=== PATIENT | male | born 1985 | race Caucasian/White ===

== ENCOUNTER 2016-11-21 07:37 | Emergency (ER) | payer BC, OTHER ==
--- NOTE | 2016-11-21 08:07 | Emergency Department Record ---
History of Present Illness - General Chief complaint: Flank Pain Stated complaint: LEFT FLANK PAIN Time Seen by Provider: 11/21/16 07:53 Source: Patient Mode of Arrival: Ambulatory Limitations: No limitations - History of Present Illness Initial comments: The patient is here due to the acute onset of L flank pain for the last 4 hours. The onset was sudden and the pain does radiate to the L testicle. He has had nausea and vomiting and feels that he cannot get comfortable due to the pain. The patient has had kidney stones in the past and this feels just like ones in the past. He denies any other issues. MD Complaint: Other Onset/Timin -: Hour(s) Location: Left flank Radiation: Other Severity: Severe Severity scale (1-10): 9 Consistency: Constant Reports: Nausea/vomiting - Related Data Previous Rx's Medication Instructions Recorded Hydrocodone/Acetaminophen [[place] 1 each PO Q6HR #14 tablet 01/19/14 5-325 Tablet] Ciprofloxacin HCl [Cipro] 500 mg PO Q12HR #13 tablet 11/21/16 Allergies Allergy/AdvReac Type Severity Reaction Status Date / Time amoxicillin [Amoxicillin] Allergy RASH Verified 01/19/14 01:52 Travel Screening - Travel/Exposure Within Last 30 Days Have you traveled within the last 30 days?: No Review of Systems Constitutional: Denies: Chills, Fever Eyes: Denies: Eye discharge ENT: Denies: Congestion Respiratory: Denies: Cough, Dyspnea Past Medical History - SOCIAL HISTORY Smoking Status: Never smoker Alcohol Use: Occasional Drug Use: None - RESPIRATORY Hx Respiratory Disorders: Yes Hx Asthma: Yes - CARDIOVASCULAR Hx Cardio Disorders: No - NEURO Hx Neuro Disorders: Yes Hx Seizures: Yes - GI Hx GI Disorders: No - Hx Genitourinary Disorders: Yes Hx Kidney Stones: Yes (hx) - ENDOCRINE Hx Endocrine Disorders: No - MUSCULOSKELETAL Hx Musculoskeletal Disorders: No - PSYCH Hx Psych Problems: No - HEMATOLOGY/ONCOLOGY Hx Hematology/Oncology Disorders: No Family Medical History Any Significant Family History?: Yes Hx Heart Disease: Father Hx Kidney Disease: Mother Physical Exam - General General Appearance: Alert, Cooperative, Mild distress - Head Head exam: Atraumatic, Normocephalic - Eye Eye exam: Normal appearance, PERRL - Neck Neck exam: Normal inspection, Full ROM. negative: Tenderness - Respiratory Respiratory exam: Normal lung sounds bilaterally. negative: Respiratory distress - Cardiovascular Cardiovascular Exam: Regular rate, Normal rhythm, Normal heart sounds - GI/Abdominal GI/Abdominal exam: Soft, Normal bowel sounds. negative: Tenderness - Extremities Extremities exam: Normal inspection, Full ROM, Normal capillary refill. negative: Tenderness - Back Back exam: Reports: CVA tenderness (L) - Neurological Neurological exam: Alert. negative: Motor sensory deficit Course Vital Signs 11/21/16 07:43 Temperature 97.4 F L Pulse Rate 84 Respiratory 20 Rate Blood Pressure 168/108 Pulse Ox 96 - Reevaluation(s) Reevaluation #1: The patient is doing better at this time. His pain is improved. 11/21/16 08:38 Reevaluation #2: The patient is doing much better at this time. His pain has mainly resolved and he is resting comfortably. 11/21/16 08:58 Reevaluation #3: The patient is doing better at this time. His pain has resolved. I did explain to him that it appears he has passed his ureter stone. He feels ready for home. 11/21/16 09:23 Medical Decision Making - Data Complexity MDM Data: Labs Ordered and/or Reviewed, X-Ray Ordered and/or Reviewed - Lab Data Result diagrams: 11/21/16 08:10 11/21/16 08:10 - Radiology Data Radiology results: Report reviewed (Abd/pelvis CT: 2 mm stone in the dependent portion of the bladder. O/W neg.) Disposition Disposition: Discharge Clinical Impression: Ureteral calculi Disposition: Home, Self-Care Condition: (1) Good Instructions: Flank Pain (ED) Additional Instructions: Please drink plenty of fluids. Use Tylenol or Motrin for pain and continue the Cipro. Please return to the ER for any increased pain, fever, or vomiting. Prescriptions: Ciprofloxacin HCl [Cipro] 500 mg PO Q12HR #13 tablet Forms: Patient Portal Access Time of Disposition: 09:25 Quality - Quality Measures Quality Measures: N/A - Blood Pressure Screening View Details: Yes Does Patient Have Any of the Following: No Blood Pressure Classification: Pre-Hypertensive BP Reading Systolic Measurement: 140 Diastolic Measurement: 84 Screening for High Blood Pressure: < Pre-Hypertensive BP, F/U Documented > [ G8950] Pre-Hypertensive Follow-up Interventions: Referral to alternative/primary care provider.
[2016-11-21] MEDS: SODIUM CHLORIDE 0.9% 500 ML IV ONE (08:14)
[2016-11-21] MEDS: ONDANSETRON HCL IV 4 MG/2 ML VIAL IV ONE (08:16)
[2016-11-21 08:17] LABS: BASO % 0.3 % (0-6); EOS % 0.8 % (0-6); GRAN % 76.6 % (47-80); HEMATOCRIT 43.1 % (42.0-52.0); HEMOGLOBIN 15.3 gm/dl (14.0-18.0); LYMPH % 17.6 % (16-45); MEAN CELL VOLUME 80.4 fl (81-97); MEAN CORPUSCULAR HEMOGLOBIN 28.5 pg (27-33); MEAN CORPUSCULAR HGB CONC 35.5 g/dl (32-36); MEAN PLATELET VOLUME 9.8 fl (7.4-10.4); MONO % 4.7 % (0-9); PLATELET COUNT 276 K/uL (130-400); RED BLOOD COUNT 5.36 M/uL (4.40-5.70); WHITE BLOOD COUNT W/O DIFF 9.7 K/uL (4.2-12.2)
[2016-11-21] MEDS: HYDROMORPHONE HCL 1MG/ML **SYRINGE IVP ONE (08:19)
[2016-11-21 08:23] LABS: URINE APPEARANCE CLEAR; URINE BILIRUBIN SMALL (NEGATIVE); URINE BLOOD LARGE (NEGATIVE); URINE COLOR YELLOW; URINE GLUCOSE (UA) NEGATIVE (NEGATIVE); URINE KETONE NEGATIVE (NEGATIVE); URINE LEUKOCYTE ESTERASE SMALL (NEGATIVE); URINE NITRITE NEGATIVE (NEGATIVE); URINE UROBILINOGEN 0.2 E.U./dL (0.20 - 1.00)
[2016-11-21 08:32] LABS: CREATININE 0.9 mg/dL (0.7-1.2); EST GLOMERULAR FILTRATION RATE > 60 mL/min; GLUCOSE,RANDOM 139 mg/dL (74-109)
[2016-11-21 08:36] LABS: URINE BACTERIA FEW; URINE EPITHELIAL CELLS 0 - 2 (FEW); URINE RBC 21 - 35 (NONE SEEN)
[2016-11-21 08:37] LABS: URINE MUCUS MODERATE
[2016-11-21] MEDS: CIPROFLOXACIN HCL 500 MG TABLET PO ONE (09:28)
--- NOTE | 2016-11-21 10:00 | CT SCAN REPORT ---
DATE: 11/21/2016. EXAM: CT SCAN OF THE ABDOMEN AND PELVIS. HISTORY: The patient has left flank pain that radiates down into the testes. TECHNIQUE: Serial axial CT scan of the abdomen and pelvis was performed at 2.5 mm intervals from the dome of the diaphragm down to the pubic symphysis without the use of intravenous contrast. Sagittal and coronal reconstructions are provided. COMPARISON: No comparison CT is available. FINDINGS: The lung windows and lung bases demonstrate mild interstitial prominence within the right lateral lower lobe. These findings may represent mild subsegmental atelectasis and/or infiltrate. Followup PA and lateral views of the chest can be obtained until resolution of findings. The visualized heart size and contour is within normal limits. The liver demonstrates diffuse fatty infiltration. Size and contour of the liver is within normal limits. No focal hepatic lesions are identified. The spleen measures 15 cm in AP dimension. This is considered mildly enlarged. The pancreas, bilateral adrenal glands, and gallbladder are unremarkable. There is currently no CT evidence of hydronephrosis or hydroureter. There is subtle perinephric fat stranding identified of the left renal hilum. Subtle left periureteral fat stranding is also identified. No obstructive left renal calculi are noted. There is a nonobstructive 2.0 mm calculus within the mid pole of the right kidney. The contour and caliber of the abdominal aorta is within normal limits. There is no CT evidence of retroperitoneal, pelvic, or adrenal lymphadenopathy. The bowel gas pattern is nonspecific and nonobstructive. There is no CT evidence of free intraperitoneal fluid or free intraperitoneal air. Within the dependent portion of the urinary bladder, there is a punctate 2.0 mm calculus. This finding may have been the obstructing lesion within the left renal collecting system which has now passed into the bladder. Bone windows demonstrate no CT evidence of a fracture or dislocation of the osseus structures of the abdomen and pelvis. IMPRESSION: 1. A 2.0 MM CALCULUS IS NOTED WITHIN THE DEPENDENT PORTION OF THE URINARY BLADDER WHICH WAS LIKELY THE OBSTRUCTING CALCULUS IN THE LEFT URETER AND RENAL COLLECTING SYSTEM. 2. NO OTHER ACUTE INTRA-ABDOMINAL PATHOLOGY IS NOTED. 3. MILD SUBSEGMENTAL ATELECTASIS AND/OR INFILTRATE IS POSSIBLE WITHIN THE RIGHT POSTERIOR LOWER LOBE. FOLLOWUP PA AND LATERAL OF THE CHEST CAN BE OBTAINED UNTIL RESOLUTION OF FINDINGS. JOB NUMBER: [id number] [facility]
== END 2016-11-21 09:46 | disposition home or self-care (01) ==
LOC: ER 07:37
DX: N20.1 Calculus of ureter (principal); R11.2 Nausea with vomiting, unspecified; Z87.442 Personal history of urinary calculi
CPT/HCPCS: 99284 ×2; 96374; 96375; 96361; 85025; 80048; 81001; 74176; J2405; J1170

== ENCOUNTER 2017-10-26 22:45 | Emergency (ER) | payer OTHER ==
[2017-10-26] MEDS ORDERED: THROMBIN/GELATIN FOAM HEMOSTAT (THROMBI-GEL) TP ONE (22:59)
[2017-10-26] MEDS ORDERED: Diph,Pert(Acell),Tet Vac 0.5 ML SYR IM ONE (22:59)
[2017-10-26] MEDS ORDERED: TOPICAL LIDOCAINE W/ EPI 5 ML TOP ONE (22:59)
--- NOTE | 2017-10-26 23:05 | Emergency Department Record ---
History of Present Illness - General Chief Complaint: Laceration(s) Stated Complaint: LAC RT THUMB Time Seen by Provider: 10/26/17 22:47 Source: Patient Mode of Arrival: Ambulatory Limitations: No limitations - History of Present Illness Initial Commments: 31 yo male presents to ED for evaluation of a laceration to the right thumb that occurred approximately 2 hours ago. Patient reports that he was using a slicing machine resulting in tissue loss to the thumb and bleeding. Patient reports pain and bleeding through previously applied dressing, denies use of anticoagulation medications. Patient reports that his last tetanus > 5 years ago. Onset/Timin -: Hour(s) Extremity Location: Right: Hand Place: Home Context: Accidental Associated Symptoms: Pain Treatments Prior to Arrival: Bandage - [place] Coma Scale Eye Response: (4) Open spontaneously Motor Response: (6) Obeys commands Verbal Response: (5) Oriented [place] Total: 15 - Related Data Hx Tetanus Toxoid Vaccination: Yes Patient Tetanus UTD (within 5 yrs): No Previous Rx's Medication Instructions Recorded Cephalexin [Keflex] 500 mg PO QID #39 cap 10/26/17 Allergies Allergy/AdvReac Type Severity Reaction Status Date / Time amoxicillin [Amoxicillin] Allergy RASH Verified 01/19/14 01:52 Review of Systems Constitutional: Denies: Chills, Fever, Malaise, Night sweats Eyes: Denies: Eye discharge, Eye pain ENT: Denies: Congestion, Ear pain, Epistaxis Respiratory: Denies: Cough, Dyspnea Cardiovascular: Denies: Chest pain, Dyspnea on exertion Endocrine: Denies: Fatigue, Heat or cold intolerance Gastrointestinal: Denies: Abdominal pain, Nausea, Vomiting Genitourinary: Denies: Incontinence, Retention Musculoskeletal: Denies: Arthralgia, Back pain, Gout, Joint swelling Skin: Reports: Other (thumb laceration/bleeding). Denies: Bruising, Change in color, Change in hair/nails Neurological: Denies: Abnormal gait, Confusion, Seizure Psychiatric: Denies: Anxiety Hematological/Lymphatic: Denies: Anemia, Blood Clots Past Medical History - SOCIAL HISTORY Smoking Status: Never smoker Drug Use: None - RESPIRATORY Hx Respiratory Disorders: Yes Hx Asthma: Yes - CARDIOVASCULAR Hx Cardio Disorders: No - NEURO Hx Neuro Disorders: Yes Hx Seizures: Yes - GI Hx GI Disorders: No - Hx Genitourinary Disorders: Yes Hx Kidney Stones: Yes (hx) - ENDOCRINE Hx Endocrine Disorders: No - MUSCULOSKELETAL Hx Musculoskeletal Disorders: No - PSYCH Hx Psych Problems: No - HEMATOLOGY/ONCOLOGY Hx Hematology/Oncology Disorders: No Family Medical History Hx Heart Disease: Father Hx Kidney Disease: Mother Physical Exam - General General Appearance: Alert, Oriented x3, Cooperative, Moderate distress Limitations: No limitations - Head Head exam: Atraumatic, Normocephalic, Normal inspection Head exam detail: negative: Abrasion, Contusion, Singh's sign, General tenderness, Hematoma, Laceration - Eye Eye exam: Normal appearance. negative: Conjunctival injection, Periorbital swelling, Periorbital tenderness, Scleral icterus - ENT Ear exam: negative: Auricular hematoma, Auricular trauma Nasal Exam: negative: Active bleeding, Discharge, Dried blood, Foreign body Mouth exam: negative: Drooling, Laceration, Muffled voice, Tongue elevation - Neck Neck exam: Normal inspection. negative: Meningismus, Tenderness - Respiratory Respiratory exam: Normal lung sounds bilaterally. negative: Rales, Respiratory distress, Rhonchi, Stridor - Cardiovascular Cardiovascular Exam: Regular rate, Normal rhythm, Normal heart sounds - GI/Abdominal GI/Abdominal exam: Soft. negative: Rebound, Rigid, Tenderness - Rectal Rectal exam: Deferred - exam: Deferred - Extremities Extremities exam: Tenderness, Other (1.0 x 2.0 cm laceration resulting from tissue loss of the palmar aspect of the right thumb, no tendon visualized, FROM with extension/flexion is present.). negative: Calf tenderness, Pedal edema - Back Back exam: Denies: CVA tenderness (R), CVA tenderness (L) - Neurological Neurological exam: Alert, Normal gait, Oriented X3 - Psychiatric Psychiatric exam: Normal affect, Normal mood - Skin Skin exam: Normal color. negative: Abrasion Type of lesion: negative: abrasion Course Vital Signs 10/26/17 22:51 Temperature 98.4 F Pulse Rate [ 79 Pulse Ox Probe] Respiratory 18 Rate Blood Pressure 129/89 [Left Arm] Pulse Ox 97 - Reevaluation(s) Reevaluation #1: 10/26/17 23:05 Laceration cannot be closed due to tissue loss of the palmar aspect of the right thumb, will apply TLE followed by thrombi-pad to stop the patient's bleeding symptoms. Will also refer the patient to Dr. Ahumada for further evaluation to determine if skin grafting may be needed following initial healing of the thumb. Reevaluation #2: 10/26/17 23:30 Dressing was reassessed following observation period, no further bleeding noted. Patient reports that he will follow-up with his hand surgeon in [place]. Keflex initiated in ED prior to discharge as well. Disposition Disposition: Discharge Clinical Impression: Thumb laceration Qualifiers: Encounter type: initial encounter Damage to nail status: with damage Foreign body presence: without foreign body Laterality: right Qualified Code(s): S61.111A - Laceration without foreign body of right thumb with damage to nail, initial encounter Disposition: Home, Self-Care Condition: (2) Stable Instructions: Laceration (ED) Additional Instructions: Return to ED if your symptoms worsen or if you have any concerns. Keflex as directed. Follow-up with Dr. Ahumada in 1-3 days for further evaluation of your thumb wound. Prescriptions: Cephalexin [Keflex] 500 mg PO QID #39 cap Referrals: LENCHO AHUMADA M.D. [MEDICAL DOCTOR] - Forms: Patient Portal Access Time of Disposition: 23:32 Quality - Quality Measures Quality Measures: N/A - Blood Pressure Screening Does Patient Have Any of the Following: No Blood Pressure Classification: Pre-Hypertensive BP Reading Systolic Measurement: 129 Diastolic Measurement: 89 Screening for High Blood Pressure: < Pre-Hypertensive BP, F/U Documented > [ G8950] Pre-Hypertensive Follow-up Interventions: Referral to alternative/primary care provider.
[2017-10-26] MEDS ORDERED: CEPHALEXIN 500 MG CAPSULE PO STA (23:36)
== END 2017-10-26 23:45 | disposition home or self-care (01) ==
LOC: ER 22:45
DX: S61.111A Laceration without foreign body of right thumb with damage to nail, initial encounter (principal); W31.89XA Contact with other specified machinery, initial encounter; Y92.009 Unspecified place in unspecified non-institutional (private) residence as the place of occurrence of the external cause
CPT/HCPCS: 90715; 96372; 99283; 99284